=== PATIENT | female | born 1950 | race Two or more races ===

== ENCOUNTER 2023-06-24 10:33 | Inpatient (IN) | payer OTHER ==
[~2023-06-24] VITALS: Ht 170.2 cm; Wt 65.8 kg
[~2023-06-24 10:33] MED LIST: ACETAMINOOPHEN-1 TAB PO; PRAVASTATIN SOD40 MG; SEPTRA DS TABLE1 TAB PO; TUSSI PRES-B L120 M1 PO; ZITHROMAX TRI-500 MG PO
[2023-06-24] MEDS ORDERED: SYNTHROID50 MCG PO (11:15)
[2023-06-24 13:32] LABS: HEMATOCRIT 40.6 % (36.0-45.00); MEAN CELL VOLUME 93.5 fL (80.00-100.00); MEAN CORPUSCULAR HEMOGLOBIN 32.2 pg (27.00-32.0); MEAN CORPUSCULAR HGB CONC 34.5 g/dl (32.0-36.0); PLATELET COUNT 227 K/uL (150-450); RED BLOOD COUNT 4.34 M/uL (4.00-6.00); RED CELL DISTRIBUTION WIDTH 12.8 % (11.5-14.5)
[2023-06-24 13:57] LABS: URINE APPEARANCE Clear; URINE BILIRRUBIN Negative (NEGATIVE); URINE BLOOD Moderate; URINE COLOR Yellow; URINE GLUCOSE Negative (NEGATIVE); URINE LEUKOCYTE Negative; URINE NITRATE Negative; URINE PROTEIN Negative (NEGATIVE); URINE UROBILINOGEN 0.2 E.U./dl
[2023-06-24 13:58] LABS: CALCIUM 9.6 mg/dL (8.5-10.1); CREATININE SERUM 0.87 mg/dL (0.55-1.02); POTASSIUM 3.82 mEq/L (3.5-5.1)
[2023-06-24 14:00] LABS: URINE BACTERIA 331.2 uL (0.0-1933); URINE EPITHELIAL CELLS 67.3 uL (0.0-38.8); URINE RBC 43.3 uL (0.0-20.8)
[2023-06-24 20:02] LABS: INR 1.09; PARTIAL THROMBOPLASTIN TIME 28.8 SECONDS (22.0-34.0); PROTHROMBIN TIME 11.4 SECONDS (9.0-11.5)
[2023-06-26 07:24] LABS: HEMOGLOBIN 12.8 g/dL (12.0-15.00); MEAN CELL VOLUME 93.8 fL (80.00-100.00); MEAN CORPUSCULAR HEMOGLOBIN 32.5 pg (27.00-32.0); MEAN CORPUSCULAR HGB CONC 34.6 g/dl (32.0-36.0); PLATELET COUNT 244 K/uL (150-450); RED BLOOD COUNT 3.95 M/uL (4.00-6.00); RED CELL DISTRIBUTION WIDTH 12.6 % (11.5-14.5)
[2023-06-26 08:07] LABS: ALBUMIN 3.6 gm/dL (3.4-5.0); BILIRUBIN TOTAL 0.73 mg/dL (0.3-1.2); CALCIUM 8.5 mg/dL (8.5-10.1); CREATININE SERUM 0.82 mg/dL (0.55-1.02); GFR 68.53; GLOBULINA 3.5 G/DL (2.4-3.5); POTASSIUM 4.29 mEq/L (3.5-5.1); TOTAL PROTEIN 7.1 gm/dL (6.4-8.2)
== END 2023-06-26 14:26 | disposition home or self-care (01) | DRG 392 ==
LOC: ER 10:33 → MEDJ 19:10
PROVIDERS: General Practice; ADMIT Internal Medicine; ATTEND Internal Medicine
PROC: BW21ZZZ Computerized Tomography (CT Scan) of Abdomen and Pelvis (ICD-10-PCS; principal; 2023-06-24)
DX: K57.32 Diverticulitis of large intestine without perforation or abscess without bleeding (principal)